=== PATIENT | male | born 1980 | race African-American/Black ===

== ENCOUNTER 2021-06-13 23:36 | Emergency (ER) | payer OTHER ==
[~2021-06-13] VITALS: Ht 188 cm; Wt 81.8 kg
[2021-06-14 01:15] VITALS: BP 131/66
[2021-06-14] MEDS ORDERED: CefTRIAXone SODIUM 1 GM/VIAL IM ONE (01:15)
[2021-06-14] MEDS ORDERED: LIDOCAINE/PF 1% 2 ML VIAL IM ONE (01:15)
[2021-06-14] MEDS ORDERED: AZITHROMYCIN 500 MG TABLET PO ONE (01:15)
[2021-06-14 01:46] LABS: APPEARANCE,URINE CLEAR (CLEAR); BILIRUBIN,URINE NEGATIVE (NEGATIVE); GLUCOSE, URINE (UA) NEGATIVE (NEGATIVE); KETONES,URINE NEGATIVE (NEGATIVE); LEUKOCYTE ESTERASE ,URINE NEGATIVE (NEGATIVE); NITRATE,URINE NEGATIVE (NEGATIVE); OCCULT BLOOD,URINE NEGATIVE (NEGATIVE); PROTEIN,URINE NEGATIVE (NEGATIVE); UROBILINOGEN,URINE 0.2 mg/dL (<=1.0)
[2021-06-14 01:52] LABS: BACTERIA,URINE None Seen /HPF (None Seen); RBC,URINE None Seen /HPF (0-2); WBC,URINE None Seen /HPF (0-5)
== END 2021-06-14 01:41 | disposition home or self-care (01) ==
LOC: EMS 23:42
DX: R36.9 Urethral discharge, unspecified (principal); F17.210 Nicotine dependence, cigarettes, uncomplicated
CPT/HCPCS: 81001; 87491; 87591; 96372; 99283; J0696; J3490; Q9967